=== PATIENT | female | born 1960 | race Caucasian/White ===

== ENCOUNTER 2016-11-20 19:10 | Emergency (ER) | payer OTHER ==
[~2016-11-20] VITALS: Ht 167.6 cm; Wt 136.1 kg
[~2016-11-20 19:10] MED LIST: AGGRENOX 25 MG-1 CAP PO; AMLODIPINE10 MG PO; ASPIR 8181 MG PO; ASPIRIN CHILDRE81 MG PO; ATORVASTATIN CA10 MG PO; ATORVASTATIN CA20 MG PO; CALCIPOTRIENE0.0051 TOP; CETIRIZINE10 MG PO; CICLOPIROX0.771 TOP; CLEOCIN T TOP; CLINDAMYCIN TOP; DIPYRIDAMOLE50 MG PO; DOVONEX0.0051 TOP; HALOBETASOL PRO0.05% TOP; HYCET 325 MG/1473 ML PO; KEFLEX500 MG PO; LEVOTHYROXIN0.088 MG PO; LOPROX0.771 TOP; LOVENOX 4040 MG/0.4 SC; PERSANTINE50 MG PO; PREDNISONE10 MG PO; PROBIOTIC FORMU1 CA1 PO; PROTONIX 40MG T40 MG PO; ULTRAVATE 0.05% TOP; VICODIN7.5-300 PO; VITAMIN C500 M3 PO; VITAMIN D1000 IU PO; VITAMIN D31000 IU PO; ZINC1 TAB PO; ZINC10 MG PO; ZOFRAN ODT4 MG SL; ZOLOFT 100 MG100 MG PO; ZYRTEC ALLERGY10 MG PO; [UNRECOGNIZED DRUG - CODE] PO; [UNRECOGNIZED DRUG - OTHER]
[2016-11-20 19:49] LABS: ABSOLUTE BASOPHIL COUNT 0.1 /CUMM (0.0-0.2); ABSOLUTE EOSINOPHIL COUNT 0.2 /CUMM (0.0-0.7); ABSOLUTE GRANULOCYTE CT 5.8 /CUMM (1.4-6.5); ABSOLUTE LYMPH COUNT 2.4 /CUMM (1.2-3.4); ABSOLUTE MONOCYTE COUNT 0.5 /CUMM (0.10-0.60); BASOPHIL % 0.9 % (0.0-2.0); EOSINOPHIL % 2.8 % (0-5); GRANULOCYTE % 64.3 % (42.2-75.2); HEMATOCRIT 46.1 % (37-47); MEAN CORPUSCULAR HGB 29.9 PG (27.0-31.0); MEAN CORPUSCULAR HGB CONC 32.8 G/DL (33.0-37.0); MEAN CORPUSCULAR VOLUME 91.2 FL (81.0-99.0); MEAN PLATELET VOLUME 9.3 FL (7.4-10.4); PLATELET COUNT 250 /CUMM (130-400); RBC DISTRIBUTION WIDTH 13.9 % (11.5-14.5); RED BLOOD CELL CT 5.06 /CUMM (4.20-5.40); WHITE BLOOD CELL COUNT 9.1 /CUMM (4.8-10.8)
[2016-11-20 19:55] LABS: PT 10.9 SEC (9.4-12.5); PTT 38 SEC (25-37)
--- NOTE | 2016-11-20 21:00 | ED AMS/SEIZURE/WEAK/DIZZY ---
History of Present Illness General Chief Complaint: Dizziness Stated Complaint: DIZZINESS Source: patient Exam Limitations: no limitations Vital Signs & Intake/Output Vital Signs & Intake/Output Vital Signs Date Time Temp Pulse Resp B/P B/P Pulse O2 O2 Flow FiO2 Mean Ox Delivery Rate 11/209 98.3 76 18 140/60 99 Room Air 11/207 Room Air 11/206 98.1 80 16 151/85 98 Room Air Room Air ED Intake and Output 11/21 0000 11/20 1200 Intake Total 0 Output Total Balance 0 Intake, Oral 0 Patient 300 lb Weight Weight Reported by Patient Measurement Method Allergies Coded Allergies: cephalexin (From KEFLEX) (Severe, ITCHING 11/20/16) metronidazole (From FLAGYL) (UNKNOWN 11/20/16) sulfamethoxazole (From BACTRIM) (RASH 11/20/16) trimethoprim (From BACTRIM) (RASH 11/20/16) nitroglycerin (Intermediate, HALLUCINATES FROM NITROPASTE 11/20/16) codeine (GI UPSET 11/20/16) Reconcile Medications Amlodipine Besylate (Amlodipine) 10 MG TABLET 1 TAB PO DAILY HEART (Reported) Ascorbic Acid (Vitamin C) 500 MG TAB 1 TAB PO DAILY SUPPLMENT (Reported) Aspirin (Children's Aspirin) 81 MG TAB.CHEW 1 TAB PO DAILY HEART HEALTH ( Reported) Atorvastatin Calcium (Lipitor) 20 MG TABLET 1 TAB PO DAILY CHOLESTEROL ( Reported) Calcipotriene (Dovonex) 0.005 % CREAM..G. 1 DENISE TOP BID SKIN RASH (Reported) CETIRIZINE HCL (Zyrtec) 10 MG CAPSULE 1 CAP PO DAILY ALLERGIES (Reported) CHOLECALCIFEROL (VITAMIN D3) (Vitamin D3) 5,000 UNIT TABLET 1 TAB PO DAILY SUPPLMENT (Reported) Ciclopirox (Loprox) 0.77% CRE 1 DENISE TOP DAILY SKIN RASH (Reported) Clindamycin Phosphate (Clindagel 7.3 Ml) (Unknown Strength) GEL 1 DENISE TOP BID SKIN RASH (Reported) Dipyridamole (Persantine) 50 MG TABLET 1 TAB PO BID VARICOSE VEINS (Reported) Enoxaparin Sodium (Lovenox 40MG/0.4ML) 40 MG/0.4 ML SYRINGE 1 SYR SC DAILY BLOOD THINNER Halobetasol Propionate (Ultravate) (Unknown Strength) CRE 1 DENISE TOP BID SKIN RASH (Reported) HYDROCODONE/ACETAMINOPHEN (Hycet 7.5 MG-325 MG/15 Ml Soln) 7.5 MG-325 MG/15 ML SOLUTION 15 ML PO Q4P PRN PAIN Levothyroxine Sodium (Levothyroxine) 0.088 MG TAB 1 TAB PO DAILY HASHIMOTOS ( Reported) Meclizine HCl 25 MG TABLET 1 TAB PO TIDPRN PRN dizziness Pantoprazole Sodium (Protonix) 40 MG TABLET.DR 1 TAB PO DAILY AC ACID REFLUX (Reported) Sertraline (Zoloft 100 MG Tab) (Unknown Strength) TABLET 1 TAB PO DAILY MENTAL HEALTH (Reported) Zinc (Pt-Qrwb-[id number]) (Unknown Strength) TABLET (Unknown Dose) SUPPLMENT ( Reported) Triage Note: PT TO TRIAGE WITH DIZZINESS AFTER DRIVING SINCE WEDNESDAY. PT STATES SHE ALSO HAS HAD HEADACHE SINCE THAT NIGHT. PT STATES WEDNESDAY WHEN SHE STOPPED IN THE CAR AGAIN SHE HAD THE DIZZINESS, WHICH HAS BEEN ON AND OFF Triage Nurses Notes Reviewed? yes Onset: Abrupt Duration: day(s): Timing: recent history Severity: moderate Modifying Factors: Worsens With: movement. HPI: 56-year-old female with history of CVA presents emergency department complaining of dizziness, headache, nausea x 4 days. Patient states that dizziness is worse when turning her head or with positional changes. She is also complaining of a headache. She called her primary care doctor's office and they informed her that this was likely BPPV and that it would go away on its own however her symptoms persisted. Given her history of CVA and persistent symptoms Dr. Vernon recommended she be seen and evaluated here in the emergency department today. The patient is no longer on blood thinners. The patient denies visual changes, ear pain, fevers, chills, recent illness, fall, head trauma. (DOMENICA SOLOMON,EDWINA MARIE) Past History Travel History Traveled to [place] past 21 day No Medical History Any Pertinent Medical History? see below for history Neurological: CVA Cardiovascular: hypertension, hyperlipidemia, VENOUS INSUFFICIENCY Respiratory: asthma, SLEEP APNEA Gastrointestinal: GERD Hepatic: NONE Renal: NONE Musculoskeletal: SPINAL DEGENERATION ARTHRITIS FX LEG AT 6 Y/O Psychiatric: HX OF ANXIETY Endocrine: hypothyroidism, PRE DIABETES Blood Disorders: NONE Cancer(s): NONE SUPERINTENDENT CONSTRUCTION/Reproductive: NONE Surgical History Surgical History: APPY, GASTRIC SLEEVE Psychosocial History Who do you live with Patient/Self Services at Home None What is your primary language Salvadorean Tobacco Use: Current Not Daily ETOH Use: denies use Illicit Drug Use: denies illicit drug use Family History Hx Contributory? No (EDWINA METZGER PA-C) Review of Systems Review of Systems Constitutional: Reports: see HPI. EENTM: Reports: no symptoms. Respiratory: Reports: no symptoms. Cardiovascular: Reports: no symptoms. GI: Reports: no symptoms. Genitourinary: Reports: no symptoms. Musculoskeletal: Reports: no symptoms. Skin: Reports: no symptoms. Neurological/Psychological: Reports: see HPI. Hematologic/Endocrine: Reports: no symptoms. Immunologic/Allergic: Reports: no symptoms. All Other Systems: Reviewed and Negative (EDWINA METZGER PA-C) Physical Exam Physical Exam General Appearance: well developed/nourished, no apparent distress, alert, awake Head: atraumatic, normal appearance Eyes: Bilateral: normal appearance, PERRL, EOMI, other (nystagmus with lateral gaze). Ears, Nose, Throat: normal ENT inspection, hearing grossly normal Neck: normal inspection, supple, full range of motion Back: normal inspection, normal range of motion Extremities: normal range of motion Neurologic/Psych: awake, alert, oriented x 3, psych social worker II-XII nml as tested Skin: intact, normal color, warm/dry Core Measures ACS in differential dx? No CVA/TIA Diagnosis: No Severe Sepsis Present: No Septic Shock Present: No (EDWINA METZGER PA-C) Progress Differential Diagnosis: benign positional vertigo, CVA/stroke, electrolyte imbalance, hypoglycemia, intracranial Hem., intracranial mass/tumor, labrynthitis, Meniere's disease, migraine BRYANT Plan of Care: Orders Procedure Date/time Status EKG 11/21 1931 Active TROPONIN LEVEL 11/20 1930 Complete PARTIAL THROMBOPLASTIN TIME 11/20 1930 Complete PROTHROMBIN TIME 11/20 1930 Complete COMPREHENSIVE METABOLIC PANEL 11/20 1930 Complete CBC WITHOUT DIFFERENTIAL 11/20 1930 Complete Laboratory Tests 11/20/161931: Anion Gap 11, Estimated GFR > 60, BUN/Creatinine Ratio 15.6, Glucose 98, Calcium 9.3, Total Bilirubin 0.4, AST 25, ALT 39, Alkaline Phosphatase 122, Troponin I < 0.01, Total Protein 7.3, Albumin 4.3, Globulin 3.0, Albumin/Globulin Ratio 1.4, PT 10.9, INR 1.04, APTT 38 H, CBC w Diff NO MAN DIFF REQ, RBC 5.06, MCV 91.2, MCH 29.9, RDW 13.9, MPV 9.3, Gran % 64.3, Lymphocytes % 26.5, Monocytes % 5.5, Eosinophils % 2.8, Basophils % 0.9, Absolute Granulocytes 5.8, Absolute Lymphocytes 2.4, Absolute Monocytes 0.5, Absolute Eosinophils 0.2, Absolute Basophils 0.1, PUBS MCHC 32.8 L Patient given meclizine by mouth for her dizziness symptoms. Her dizziness is positional, nystagmus seen on exam only with lateral gaze. The patient reports no change in her symptoms following meclizine. She states she does not have any dizziness currently. She only has headache right now. The patient was discussed with Dr. Cardenas. The patient will go home with a short course of meclizine and follow up with her primary care doctor next week, she has an appointment for Wednesday. She can take Tylenol or Motrin as prescribed as needed for her headache. The patient was informed that she may need to follow-up with a neurologist if her symptoms are persistent. The patient is in no acute distress, she is well-appearing. The patient is in agreement with the plan of care. (DOMENICA SOLOMON,EDWINA MARIE) Diagnostic Imaging: Viewed by Me: CT Scan. Discussed w/RAD: CT Scan. Radiology Impression: PATIENT: VICKIE STERLING PRESENT AGE: 56 PATIENT ACCOUNT NO: [id number] : 60 LOCATION: [facility] ORDERING PHYSICIAN: GEOVANNA CARDENAS MD SERVICE DATE: 11/20/16 EXAM TYPE: CAT - CT HEAD WO IV CONTRAST EXAMINATION: CT HEAD WITHOUT CONTRAST CLINICAL INFORMATION: Dizziness, evaluate for CVA. COMPARISON: 06/14/2014. TECHNIQUE: Contiguous axial imaging was performed from the skull base to vertex without intravenous administration of contrast. DLP: 630 mGy-cm FINDINGS: There is no evidence of acute intracranial hemorrhage or territorial infarction. No abnormal mass effect or midline shift is seen. Pierce to white matter differentiation is well preserved. No extra-axial fluid collections are identified. The ventricles are normal in size. Mild to moderate periventricular decrease in attenuation which is somewhat patchy appearing within the deep white matter tracts extending into the more superficial white matter bilaterally appears unchanged given technical factors compared with the previous examination. The osseous structures and soft tissues are normal. The mastoid air cells and visualized portions of the paranasal sinuses are well aerated. IMPRESSION: No acute intracranial pathology. Mild to moderate small vessel ischemic changes are again noted. DICTATED BY: MADDI APPLE MD DATE/TIME DICTATED:11/20/162137 GIFT BASKET PACKER:MANDA DATE/TIME TRANSCRIBED:11/20/162137 CONFIDENTIAL, DO NOT COPY WITHOUT APPROPRIATE AUTHORIZATION. <Electronically signed in Other Vendor System> SIGNED BY: MADDI APPLE MD 11/20/162146 Initial ED EKG: none (DOMENICA SOLOMON,EDWINA MARIE) Departure Departure Disposition: HOME OR SELF CARE Condition: Stable Clinical Impression Primary Impression: Dizziness Secondary Impressions: Benign positional vertigo Referrals: JODIE CARMEN,LAMINE Angel (PCP/Family) Additional Instructions: Take meclizine as prescribed as needed for dizziness. Take tylenol or motrin as prescribed as needed for headache. Follow-up with her primary care doctor, call the office to make an appointment for next week. Increase your fluid intake. Return with worsening symptoms or concerns. Please note that there might be incidental findings in your evaluation that are unrelated to the current emergency department visit. Please notify your primary care doctor about this emergency department visit in order to obtain and review all of the testing performed so that these incidental findings can be monitored as needed. If you're unable to follow up as outlined in the discharge instructions please return to the emergency department. Thank you for choosing the [facility] Emergency Department for your care. It was a pleasure to serve you today. Departure Forms: Customer Survey General Discharge Information Prescriptions: Current Visit Scripts Meclizine HCl 1 TAB PO TIDPRN PRN dizziness #15 TAB (EDWINA METZGER PA-C) PA/POLARITY TESTER Co-Sign Statement Statement: ED Attending supervision documentation- [] I saw and evaluated the patient. I have also reviewed all the pertinent lab results and diagnostic results. I agree with the findings and the plan of care as documented in the PA's/POLARITY TESTER's documentation. [X] I have reviewed the ED Record and agree with the PA's/POLARITY TESTER's documentation. [] Additions or exceptions (if any) to the PAs/POLARITY TESTER's note and plan are summarized below: [] (THERESA CARMEN,GEOVANNA Andino)
--- NOTE | 2016-11-20 21:47 | CT SCAN REPORT ---
EXAMINATION: CT HEAD WITHOUT CONTRAST CLINICAL INFORMATION: Dizziness, evaluate for CVA. COMPARISON: 06/14/2014. TECHNIQUE: Contiguous axial imaging was performed from the skull base to vertex without intravenous administration of contrast. DLP: 630 mGy-cm FINDINGS: There is no evidence of acute intracranial hemorrhage or territorial infarction. No abnormal mass effect or midline shift is seen. Pierce to white matter differentiation is well preserved. No extra-axial fluid collections are identified. The ventricles are normal in size. Mild to moderate periventricular decrease in attenuation which is somewhat patchy appearing within the deep white matter tracts extending into the more superficial white matter bilaterally appears unchanged given technical factors compared with the previous examination. The osseous structures and soft tissues are normal. The mastoid air cells and visualized portions of the paranasal sinuses are well aerated. IMPRESSION: No acute intracranial pathology. Mild to moderate small vessel ischemic changes are again noted.
[2016-11-20 22:59] VITALS: BP 140/60
[2016-11-20] MEDS ORDERED: MECLIZINE HCL25 MG PO (23:02)
== END 2016-11-20 23:29 ==
LOC: ERH 19:10
PROVIDERS: Emergency Medicine
DX: R42 Dizziness and giddiness (principal); H81.10 Benign paroxysmal vertigo, unspecified ear
CPT/HCPCS: 93005; 93010